=== PATIENT | female | born 1990 ===

== ENCOUNTER 2018-05-04 00:03 | Emergency (ER) | payer OTHER ==
[2018-05-04 00:15] VITALS: BP 101/67; PULSE 85; TEMP 98; O2SAT 97
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
[2018-05-04 01:41] VITALS: RESP 20
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
== END 2018-05-04 01:15 | disposition home or self-care (01) ==
LOC: C.ER 00:03
DX: S33.5XXA Sprain of ligaments of lumbar spine, initial encounter (principal); V49.40XA Driver injured in collision with unspecified motor vehicles in traffic accident, initial encounter

== ENCOUNTER 2018-05-21 02:43 | Emergency (ER) | payer OTHER ==
[2018-05-21 03:06] VITALS: RESP 16
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
[2018-05-21 03:52] VITALS: BP 92/61; PULSE 83; TEMP 98.7; O2SAT 99
== END 2018-05-21 03:52 | disposition home or self-care (01) ==
LOC: C.ER 02:43
DX: M54.5 Low back pain (principal)

== ENCOUNTER 2018-11-29 00:08 | Emergency (ER) | payer OTHER ==
[2018-11-29 00:21] VITALS: BP 100/61; PULSE 108; RESP 20; TEMP 98.7; O2SAT 99
--- NOTE | 2018-11-29 01:34 | C.PDOC ---
History Of Present Illness 28 y/o female with cough, hx asthma, smoker, with low grade fever and back pain x 2 days. no wheezing. Time Seen by Provider: 11/29/18 00:32 Chief Complaint (Nursing): Cough, Cold, Congestion History Per: Patient History/Exam Limitations: no limitations Onset/Duration Of Symptoms: Days (2) Current Symptoms Are (Timing): Still Present Associated Symptoms: Fever Additional History Per: Patient Past Medical History Reviewed: Historical Data, Nursing Documentation, Vital Signs Vital Signs: Last Vital Signs Temp 98.7 F 11/29/18 00:18 Pulse 108 H 11/29/18 00:18 Resp 20 11/29/18 00:18 BP 100/61 11/29/18 00:18 Pulse Ox 99 11/29/18 00:18 - Medical History PMH: Bronchitis Surgical History: No Surg Hx Family History: States: Unknown Family Hx - Social History Hx Tobacco Use: No Hx Alcohol Use: Yes Hx Substance Use: No - Immunization History Hx Influenza Vaccination: Yes Hx Pneumococcal Vaccination: Yes Review Of Systems Constitutional: Positive for: Fever Respiratory: Negative for: Wheezing Musculoskeletal: Positive for: Back Pain Physical Exam - Physical Exam Appears: Non-toxic, No Acute Distress Skin: Normal Color, Warm, Dry Head: Atraumatic, Normacephalic Eye(s): bilateral: Normal Inspection Ear(s): Bilateral: Normal Nose: Normal, No Discharge Oral Mucosa: Moist Throat: Erythema, No Exudate Neck: Supple Chest: Symmetrical, No Deformity, No Tenderness Cardiovascular: Rhythm Regular, No Murmur Respiratory: Normal Breath Sounds, No Rales, No Rhonchi, No Wheezing Extremity: Normal ROM, Capillary Refill (less than 2 seconds ) Neurological/Psych: Oriented x3, Normal Speech, Normal Cognition ED Course And Treatment O2 Sat by Pulse Oximetry: 99 (on RA) Pulse Ox Interpretation: Normal Medical Decision Making Medical Decision Making: Impression: pt with ng cxr, neg rapid strep. given tamiflu and motrin. Progress: Rapid strep test ordered, resulted negative. CXR ordered. Tamiflu PO and Motrin PO given. Disposition Counseled Patient/Family Regarding: Diagnosis, Need For Followup, Rx Given - Disposition Disposition: HOME/ ROUTINE Disposition Time: 01:35 Condition: GOOD Additional Instructions: Drink more fluids. Tylenol or Motrin for fever or pain. Take Tamiflu til done. Tessalon perles for cough. Follow up with primary care doctor in a few days. Use inhaler 2 puffs every 6 hours. Prescriptions: Acetaminophen [Tylenol 325mg tab] 650 mg PO Q6 #30 tab Albuterol HFA [Ventolin HFA 90 mcg/actuation (8 g)] 2 puff IH Q6 #1 inhaler Benzonatate [Tessalon Perles] 100 mg PO TID #12 sgl Oseltamivir Phosphate [Tamiflu] 75 mg PO BID #10 capsule Instructions: Upper Respiratory Infection (ED) Forms: General Discharge Instructions, [facility] (Algerian), Work Excuse - Clinical Impression Clinical Impression: Upper respiratory infection - PA / HEALTHCARE REPRESENTATIVE / Resident Statement MD/DO has reviewed & agrees with the documentation as recorded. - Scribe Statement The provider has reviewed the documentation as recorded by the Scribe (Tori Salazar) All medical record entries made by the Scribe were at my direction and personall y dictated by me. I have reviewed the chart and agree that the record accurately reflects my personal performance of the history, physical exam, medical decision making, and the department course for this patient. I have also personally directed, reviewed, and agree with the discharge instructions and disposition.
--- NOTE | 2018-11-29 08:16 | RAD ---
Date of service: 11/29/2018 HISTORY: coug fever asthma COMPARISON: No prior. TECHNIQUE: Chest PA and lateral FINDINGS: LUNGS: No active pulmonary disease. PLEURA: No significant pleural effusion identified. No pneumothorax apparent. CARDIOVASCULAR: No aortic atherosclerotic calcification present. Normal cardiac size. No pulmonary vascular congestion. OSSEOUS STRUCTURES: No significant abnormalities. VISUALIZED UPPER ABDOMEN: Normal. OTHER FINDINGS: None. IMPRESSION: No active disease.
== END 2018-11-29 01:43 | disposition home or self-care (01) ==
LOC: C.ER 00:08
DX: J06.9 Acute upper respiratory infection, unspecified (principal); F17.200 Nicotine dependence, unspecified, uncomplicated